=== PATIENT | female | born 1995 | race Caucasian/White ===

== ENCOUNTER 2017-05-26 07:30 | Emergency (ER) | payer OTHER ==
[2017-05-26 07:31] VITALS: BMI 27.1
[2017-05-26 07:56] VITALS: TEMP 98; O2SAT 97
[2017-05-26 08:08] VITALS: RESP 18
--- NOTE | 2017-05-26 08:12 | ED PDOC ---
Arrival/HPI - General Chief Complaint: Shortness Of Breath Time Seen by Provider: 05/26/17 08:06 Historian: Patient - History of Present Illness Narrative History of Present Illness (Text): 05/26/17 08:56 21 year old female complaining of shortness of breath that began earlier today. Symptom last only for an hour and occurs in the morning. Symptoms has occurred multiple times over the last month only with the patient noting that she has been working morning shifts recently at [employer]. Patient has never seen a doctor before for this complaint. Reports headache at times. Denies chest pain, fever, chills, or cough. No recent injury, surgery, travel, hormone use, previous DVT/PE. Time/Duration: 1-3 hours Symptom Onset: Sudden Context: Work Past Medical History - Provider Review Nursing Documentation Reviewed: Yes - Travel History Have you recently traveled outside [place] w/in the past 3 mons?: Yes If Yes, travel location?: Came from [place] 2 years ago - Infectious Disease Hx of Infectious Diseases: None - Reproductive Menopause: No - Hematological/Oncological Hx Anemia: Yes - Psychiatric Hx Substance Use: No - Anesthesia Hx Anesthesia: No Family/Social History - Physician Review Nursing Documentation Reviewed: Yes Family/Social History: Unknown Family HX Smoking Status: Never Smoked Hx Alcohol Use: No Hx Substance Use: No Allergies/Home Meds Allergies/Adverse Reactions: Allergies No Known Allergies Allergy (Verified 07/05/16 22:36) Home Medications: Home Meds Medication Instructions Recorded Confirmed No Known Home Med 05/26/17 05/26/17 Review of Systems - Physician Review All systems were reviewed & negative as marked: Yes - Review of Systems Constitutional: absent: Fevers Cardiovascular: absent: Chest Pain Physical Exam - Physical Exam Narrative Physical Exam (Text): Constitutional: No acute distress. Head: Normocephalic. Atraumatic. Eyes: PERRL. ENT: Moist mucous membranes. Neck: Supple. Cardiovascular: Regular rate. Radial pulse 2+ bilaterally. Chest: No tenderness. Respiratory: Clear to auscultation bilaterally. GI: Soft. Nontender. Nondistended. Back: No CVA tenderness. Musculoskeletal: No tenderness or swelling of extremities. Skin: No rash. No bruising. Neurologic: Alert, no focal deficit. Vital Signs Temp Pulse Resp BP Pulse Ox 05/26/17 10:17 82 18 99/64 L 97 05/26/17 08:05 98 F 80 18 104/58 L 97 05/26/17 07:52 98 F 80 16 104/58 L 97 Medical Decision Making ED Course and Treatment: 05/26/17 08:12 * Plans: * EKG * Blood labs * Chest X-ray * Urinalysis PERC negative. Patient states that she currently has no symptoms and feels well. Labs unremarkable. Gave copy of labs, instructed to follow up with primary care. Instructed to return to ED for worsening dyspnea, pain, fever. - Lab Interpretations Lab Results: 05/26/17 08:15 05/26/17 08:15 Lab Results 05/26/17 08:15: Urine HCG, Qual Negative 05/26/17 08:15: Sodium 141, Potassium 3.8, Chloride 107, Carbon Dioxide 26, Anion Gap 12, BUN 10, Creatinine 0.7, Est GFR ( Amer) > 60, Est GFR (Non- Af Amer) > 60, Random Glucose 86, Calcium 9.3, Total Bilirubin 0.7, AST 24, ALT 25, Alkaline Phosphatase 51, Total Protein 7.6, Albumin 4.2, Globulin 3.3, Albumin/Globulin Ratio 1.3 05/26/17 08:15: WBC 2.8 L*, RBC 4.56, Hgb 13.9, Hct 40.5, MCV 88.8, MCH 30.5, MCHC 34.3, RDW 11.9, Plt Count 170, MPV 9.0, Gran % 30.2 L, Lymph % (Auto) 61.5 H, [place] % (Auto) 6.5 H, Eos % (Auto) 1.4 L, Baso % (Auto) 0.4, Gran # 0.84 L, Lymph # 1.7, [place] # 0.2, Eos # 0.0, Baso # 0.01 - RAD Interpretation Narrative RAD Interpretations (Text): 05/26/17 10:11 HISTORY: COMPARISON: No prior. TECHNIQUE: Chest PA and lateral FINDINGS: LINES AND TUBES: None. LUNG AND PLEURA: The lungs are well inflated and clear. HEART AND MEDIASTINUM: The heart is not enlarged. The hilar and mediastinal contours are within normal limits. SKELETAL STRUCTURES: The bony structures are within normal limits for the patient's age. VISUALIZED UPPER ABDOMEN: Normal. OTHER FINDINGS: None. IMPRESSION: No active pulmonary disease. Radiology Orders: 05/26/17 08:06 CHEST TWO VIEWS (PA/LAT) [RAD] Stat [employer] Recovery Operator: ED Physician, Radiologist - EKG Interpretation EKG Interpretation (Text): 05/26/17 08:34 NSR 63, no ST/T wave changes, Normal axis, normal intervals. Interpreted by ED Physician: Yes Type: 12 lead EKG - Scribe Statement The provider has reviewed the documentation as recorded by the Scribe Nathan fernández All medical record entries made by the Scribe were at my direction and personally dictated by me. I have reviewed the chart and agree that the record accurately reflects my personal performance of the history, physical exam, medical decision making, and the department course for this patient. I have also personally directed, reviewed, and agree with the discharge instructions and disposition. Disposition/Present on Arrival - Present on Arrival Any Indicators Present on Arrival: No History of DVT/PE: No History of Uncontrolled Diabetes: No Urinary Catheter: No History of Decub. Ulcer: No History Surgical Site Infection Following: None - Disposition Have Diagnosis and Disposition been Completed?: Yes Diagnosis: Dyspnea Disposition: HOME/ ROUTINE Disposition Time: 09:51 Patient Plan: Discharge Condition: STABLE Discharge Instructions (ExitCare): Dyspnea (ED) Referrals: PCP,NO [Primary Care Provider] - Follow up with primary [facility] [Outside] - Follow up with primary [facility] [Outside] - Follow up with primary [facility] [Outside] - Follow up with primary Forms: [employer] (Kazakh)
[2017-05-26 08:26] LABS: BASO # 0.01 K/mm3 (0.0-2.0); BASO % 0.4 % (0.0-3.0); EOS % 1.4 % (1.5-5.0); GRAN # 0.84 (1.4-6.5); GRAN % 30.2 % (50.0-68.0); HEMATOCRIT 40.5 % (36.0-48.0); LYMPH # 1.7 (1.2-3.4); LYMPH % 61.5 % (22.0-35.0); MEAN CELL VOLUME 88.8 fl (80.0-105.0); MEAN CORPUSCULAR HEMOGLOBIN 30.5 pg (25.0-35.0); MEAN CORPUSCULAR HGB CONC 34.3 g/dl (31.0-37.0); MONO # 0.2 (0.1-0.6); MONO % 6.5 % (1.0-6.0); RED CELL DISTRIBUTION WIDTH 11.9 % (11.5-14.5)
[2017-05-26 08:34] LABS: WHITE BLOOD COUNT 2.8 10^3/ul (4.5-11.0)
[2017-05-26 08:37] LABS: ALB/GLOB RATIO 1.3 (1.1-1.8); ALKALINE PHOSPHATASE 51 U/L (38-126); ALT/SGPT 25 U/L (7-56); AST/SGOT 24 U/L (14-36); BILIRUBIN,TOTAL 0.7 mg/dL (0.2-1.3); BLOOD UREA NITROGEN 10 mg/dL (7-21); CALCIUM 9.3 mg/dL (8.4-10.5); CARBON DIOXIDE 26 mmol/L (21-33); CHLORIDE 107 mmol/L (98-107); GFR AFRICAN-AMERICAN > 60; GLUCOSE,RANDOM 86 mg/dL (70-110); POTASSIUM 3.8 mmol/L (3.6-5.0); SODIUM 141 mmol/L (132-148); TOTAL PROTEIN 7.6 g/dL (5.8-8.3)
[2017-05-26 10:19] VITALS: BP 99/64; PULSE 82
--- NOTE | 2017-05-26 22:01 | CARD ---
APPROVED REPORT EKG Measurement Heart [id number] <Conclusion> Normal sinus rhythm with sinus arrhythmia Normal ECG
== END 2017-05-26 10:19 | disposition home or self-care (01) ==
LOC: EDBD → ED 07:30
DX: R06.00 Dyspnea, unspecified (principal); D64.9 Anemia, unspecified

== ENCOUNTER 2017-06-04 12:47 | Emergency (ER) | payer OTHER ==
[2017-06-04 13:05] VITALS: TEMP 98; O2SAT 98; BMI 24.6
--- NOTE | 2017-06-04 13:34 | ED PDOC ---
Arrival/HPI - General Chief Complaint: Dental Pain Time Seen by Provider: 06/04/17 13:25 Historian: Patient - History of Present Illness Narrative History of Present Illness (Text): 06/04/17 13:10 A 21 year old female, who denies any significant past medical history, presents to the emergency department after being sent by dentist. The patient is reporting right sided swelling in face and neck. The patient states she had a fever upon arrival. She denies any abdominal pain, chest pain, trauma to area, sour/bitter taste in mouth, or any other complaints at this time. She admits to taking 600 mg of ibuprofen at 12:00. Time/Duration: 4-6 hours Symptom Onset: Sudden Symptom Course: Unchanged Quality: Other (swelling) Activities at Onset: Rest, Light Context: Home Past Medical History - Provider Review Nursing Documentation Reviewed: Yes - Infectious Disease Hx of Infectious Diseases: None - Hematological/Oncological Hx Anemia: Yes - Psychiatric Hx Substance Use: No - Anesthesia Hx Anesthesia: No Family/Social History - Physician Review Nursing Documentation Reviewed: Yes Family/Social History: No Known Family HX Smoking Status: Never Smoked Hx Alcohol Use: No Hx Substance Use: No Allergies/Home Meds Allergies/Adverse Reactions: Allergies No Known Allergies Allergy (Verified 06/04/17 12:56) Review of Systems - Physician Review All systems were reviewed & negative as marked: Yes - Review of Systems Constitutional: Fevers ENT: Other (right sided mouth swelling) Cardiovascular: absent: Chest Pain Gastrointestinal: absent: Abdominal Pain Physical Exam Vital Signs Reviewed: Yes Vital Signs Temp Pulse Resp BP Pulse Ox 06/04/17 14:21 86 18 110/71 98 06/04/17 12:51 98.0 F 93 H 16 108/75 98 Temperature: Afebrile Blood Pressure: Normal Pulse: Tachycardic Respiratory Rate: Normal Appearance: Positive for: Well-Appearing, Non-Toxic, Comfortable Pain Distress: None Mental Status: Positive for: Alert and Oriented X 3 - Systems Exam Head: Present: Atraumatic, Normocephalic Pupils: Present: PERRL Extroacular Muscles: Present: EOMI Conjunctiva: Present: Normal Mouth: Present: Moist Mucous Membranes, Normal Lips, Normal Tounge, Other (no fluctlulance on gums ). No: Normal Teeth (tooth #32 appears to be impacted) Pharnyx: Present: Normal. No: ERYTHEMA, EXUDATE, TONSILS ENLARGED, Peritonsilar Swelling, Uvular Deviation, Muffled/Hoarse Voice, Strider, Soft Palate/Uvular Edema Neurological: Present: GCS=15, CN II-XII Intact, Speech Normal Skin: Present: Warm, Dry, Normal Color. No: Rashes Psychiatric: Present: Alert, Oriented x 3, Normal Insight, Normal Concentration Medical Decision Making ED Course and Treatment: 06/04/17 13:10 Impression: A 21 year old female with right sided facial and neck swelling. Differential Diagnosis included but are not limited to: Plan: -- Maxillofacial w/o contrast CT -- test -- Reassess and disposition Progress Notes: - RAD Interpretation Radiology Orders: 06/04/17 13:27 MAXILLOFACIAL W/O CONTRAST [CT] Stat - Scribe Statement The provider has reviewed the documentation as recorded by the Scribe Vania Denis Provider Scribe Attestation: All medical record entries made by the Scribe were at my direction and personally dictated by me. I have reviewed the chart and agree that the record accurately reflects my personal performance of the history, physical exam, medical decision making, and the department course for this patient. I have also personally directed, reviewed, and agree with the discharge instructions and disposition. Disposition/Present on Arrival - Present on Arrival Any Indicators Present on Arrival: No History of DVT/PE: No History of Uncontrolled Diabetes: No Urinary Catheter: No History of Decub. Ulcer: No History Surgical Site Infection Following: None - Disposition Have Diagnosis and Disposition been Completed?: Yes Diagnosis: Pain, dental Disposition: HOME/ ROUTINE Disposition Time: 14:20 Condition: GOOD Discharge Instructions (ExitCare): Toothache (ED) Additional Instructions: Thank you for letting us take care of you today. The emergency medical care you received today was directed at your acute symptoms. If you were prescribed any medication, please fill it and take as directed. It may take several days for your symptoms to resolve. Return to the Emergency Department if your symptoms worsen, do not improve, or if you have any other problems. Please contact your doctor or call one of the physicians/clinics you have been referred to that are listed on the Patient Visit Information form that is included in your discharge packet. Bring any paperwork you were given at discharge with you along with any medications you are taking to your follow up visit. Our treatment cannot replace ongoing medical care by a primary care provider (PCP) outside of the emergency department. Thank you for allowing the [facility] team to be part of your care today. Follow up with your dentist in 2 days for re-evaluation and further management. Prescriptions: RX: Clindamycin [Cleocin] 300 mg PO Q6 #20 cap Ibuprofen [Motrin] 600 mg PO Q6 PRN #20 tab PRN Reason: Pain, Moderate (4-7) Referrals: PCP,NO [Primary Care Provider] - Follow up with primary Forms: [employer] (Comoran)
--- NOTE | 2017-06-04 14:20 | CT ---
PROCEDURE: CT MAXILLOFACIAL BONES WITHOUT CONTRAST HISTORY: r/o abscess to right mandibular area COMPARISON: None TECHNIQUE: Contiguous axial CT images of the maxillofacial bones were obtained. Coronal and sagittal reformats were generated. Radiation dose: Total exam DLP = 802 mGy-cm. This CT exam was performed using one or more of the following dose reduction techniques: Automated exposure control, adjustment of the mA and/or kV according to patient size, and/or use of iterative reconstruction technique. FINDINGS: NASAL BONES: Unremarkable. ORBITS: Unremarkable. PARANASAL SINUSES/ MASTOIDS: Mucous retention cysts are seen in both maxillary sinuses. MAXILLA: No evidence of bony destruction to suggest dental abscess MANDIBLE/ TEMPOROMANDIBULAR JOINTS: No evidence of bony destruction to suggest dental abscess. Minimal subcutaneous inflammatory changes are seen in the right mandibular region. There is no evidence of a discrete abscess. SKULL BASE: Unremarkable. TEMPORAL BONES: Middle ears and mastoid grossly unremarkable. OTHER FINDINGS: None. IMPRESSION: No evidence of bony destruction to suggest dental abscess. Minimal subcutaneous inflammatory changes in the right mandibular region.
[2017-06-04 14:22] VITALS: BP 110/71; PULSE 86; RESP 18
== END 2017-06-04 14:47 | disposition home or self-care (01) ==
LOC: ED 12:47
DX: K08.89 Other specified disorders of teeth and supporting structures (principal)

== ENCOUNTER 2018-10-03 12:13 | Emergency (ER) | payer OTHER ==
[2018-10-03 12:14] VITALS: BMI 24.6
[2018-10-03 12:44] VITALS: TEMP 98.2
[2018-10-03] MEDS ORDERED: Sodium Chloride 0.9% 1,000 ML IV STA (13:25)
[2018-10-03 14:31] LABS: BASO # 0.03 K/mm3 (0.0-2.0); BASO % 0.8 % (0.0-3.0); EOS # 0.1 (0.0-0.7); EOS % 2.1 % (1.5-5.0); HEMOGLOBIN 14.8 g/dL (12.0-16.0); LYMPH # 1.4 (1.2-3.4); LYMPH % 37.3 % (22.0-35.0); MEAN CORPUSCULAR HEMOGLOBIN 30.1 pg (25.0-35.0); MEAN CORPUSCULAR HGB CONC 34.3 g/dl (31.0-37.0); MEAN PLATELET VOLUME 8.7 fl (7.0-11.0); MONO # 0.5 (0.1-0.6); MONO % 12.1 % (1.0-6.0); RBC 4.91 10^6/uL (3.5-6.1); RED CELL DISTRIBUTION WIDTH 12.1 % (11.5-14.5); URINE BILIRUBIN NEGATIVE (NEGATIVE); URINE BLOOD NEGATIVE (NEGATIVE); URINE GLUCOSE (UA) NEGATIVE (NEGATIVE); URINE LEUKOCYTE ESTERASE SMALL Leu/uL (NEGATIVE); URINE PROTEIN NEGATIVE mg/dL (<30 mg/dL); URINE UROBILINOGEN 0.2 E.U./dL (<1 E.U./dL); WHITE BLOOD COUNT 3.7 10^3/uL (4.5-11.0)
[2018-10-03 14:34] LABS: URINE APPEARANCE CLEAR (CLEAR); URINE COLOR YELLOW (YELLOW)
[2018-10-03 14:40] LABS: BLOOD UREA NITROGEN 9 mg/dL (7-21); GFR NON-AFRICAN AMERICAN > 60
[2018-10-03 14:41] LABS: ALB/GLOB RATIO 1.1 (1.1-1.8); ALBUMIN 4.2 g/dL (3.0-4.8); ALT/SGPT 10 U/L (7-56); AST/SGOT 21 U/L (14-36); CALCIUM 9.4 mg/dL (8.4-10.5); URINE RBC 0 - 2 /hpf (0-2)
--- NOTE | 2018-10-03 14:41 | ED PDOC ---
Arrival/HPI - General Chief Complaint: Shortness Of Breath Time Seen by Provider: 10/03/18 12:19 Historian: Patient - History of Present Illness Narrative History of Present Illness (Text): 10/03/18 23:15 22 y/o female with no significant PMH presents to the ED c/o chest tightness and sinus congestion x 1 day. Associated chest pain when taking deep breaths, sore throat, and chest congestion. Has not taken any medication for symptoms. No hormone use, recent surgeries, travel, or long immobilizations. No history of malignancy. Denies fever, chills, vision changes, dizziness, urinary symptoms, nausea, vomiting, abdominal pain, rash, calf swelling or pain, back, neck pain/stiffness, headache, or any other symptoms. Past Medical History - Provider Review Nursing Documentation Reviewed: Yes - Infectious Disease Hx of Infectious Diseases: None - Reproductive Menopause: No - Hematological/Oncological Hx Anemia: Yes - Psychiatric Hx Substance Use: No - Anesthesia Hx Anesthesia: No Family/Social History - Physician Review Nursing Documentation Reviewed: Yes Family/Social History: No Known Family HX Smoking Status: Never Smoked Hx Alcohol Use: No Hx Substance Use: No Allergies/Home Meds Allergies/Adverse Reactions: Allergies No Known Allergies Allergy (Verified 06/04/17 12:56) Home Medications: Home Meds Medication Instructions Recorded Confirmed No Known Home Med 10/03/18 10/03/18 Review of Systems - Review of Systems Constitutional: Normal Eyes: Normal ENT: Normal Respiratory: Normal Cardiovascular: Normal Gastrointestinal: Normal Genitourinary Female: Normal Musculoskeletal: Normal Skin: Normal Neurological: Normal Endocrine: Normal Hemo/Lymphatic: Normal Psychiatric: Normal Physical Exam Vital Signs Reviewed: Yes Vital Signs Temp Pulse Resp BP Pulse Ox 10/03/18 12:37 98.2 F 84 20 97/67 L 97 Temperature: Afebrile Blood Pressure: Hypotensive Pulse: Regular Respiratory Rate: Normal Appearance: Positive for: Well-Appearing, Non-Toxic, Comfortable Pain Distress: None Mental Status: Positive for: Alert and Oriented X 3 - Systems Exam Head: Present: Atraumatic, Normocephalic Pupils: Present: PERRL Extroacular Muscles: Present: EOMI Conjunctiva: Present: Normal Mouth: Present: Moist Mucous Membranes Neck: Present: Normal Range of Motion Respiratory/Chest: Present: Clear to Auscultation, Good Air Exchange. No: Respiratory Distress, Accessory Muscle Use Cardiovascular: Present: Regular Rate and Rhythm, Normal S1, S2. No: Murmurs Abdomen: No: Tenderness, Distention, Peritoneal Signs Back: Present: Normal Inspection Upper Extremity: Present: Normal Inspection. No: Cyanosis, Edema Lower Extremity: Present: Normal Inspection. No: Edema Neurological: Present: GCS=15, CN II-XII Intact, Speech Normal Skin: Present: Warm, Dry, Normal Color. No: Rashes Psychiatric: Present: Alert, Oriented x 3, Normal Insight, Normal Concentration Medical Decision Making ED Course and Treatment: Initial Plan: * CBC, CMP * Mg, Phos * Coags * UA, culture * Troponin, Dimer * CXR * Rapid flu * Rapid strep * IVF EKG is NSR at 90bpm without STEMI or other signs of ischemi; troponin negative Dimer negative Bloodwork reviewed, unremarkable Flu and strep negative CXR shows no active disease Patient refusing any prescription medications, states she would just like to go home and rest. Diagnostic testing results and plan of care discussed with patient. Strict instructions given regarding importance of followup, and signs/symptoms to return to ER including chest pain, difficulty breathing, lethargy, or any other new/worsening symptoms. Pt verbalized understanding of discussion. Patient is A&Ox3, ambulating with steady gait, with vital signs stable for discharge. - Lab Interpretations Lab Results: Total Bilirubin 0.4 mg/dL (0.2-1.3) 10/03/18 14:15 AST 21 U/L (14-36) 10/03/18 14:15 ALT 10 U/L (7-56) 10/03/18 14:15 Alkaline Phosphatase 58 U/L (38-126) 10/03/18 14:15 Total Protein 8.1 g/dL (5.8-8.3) 10/03/18 14:15 Albumin 4.2 g/dL (3.0-4.8) 10/03/18 14:15 Globulin 3.9 gm/dL 10/03/18 14:15 Albumin/Globulin Ratio 1.1 (1.1-1.8) 10/03/18 14:15 Urine Color Yellow (YELLOW) 10/03/18 14:15 Urine Appearance Clear (CLEAR) 10/03/18 14:15 Urine pH 6.0 (4.7-8.0) 10/03/18 14:15 Ur Specific [place] 1.010 (1.005-1.035) 10/03/18 14:15 Urine Protein Negative mg/dL (<30 mg/dL) 10/03/18 14:15 Urine Glucose (UA) Negative mg/dL (NEGATIVE) 10/03/18 14:15 Urine Ketones Negative mg/dL (NEGATIVE) 10/03/18 14:15 Urine Blood Negative (NEGATIVE) 10/03/18 14:15 Urine Nitrate Negative (NEGATIVE) 10/03/18 14:15 Urine Bilirubin Negative (NEGATIVE) 10/03/18 14:15 Urine Urobilinogen 0.2 E.U./dL (<1 E.U./dL) 10/03/18 14:15 Ur Leukocyte Esterase Small Esperanza/uL (NEGATIVE) H 10/03/18 14:15 10/03/18 14:15 10/03/18 14:15 Lab Results 10/03/18 14:15: Urine Color Yellow, Urine Appearance Clear, Urine pH 6.0, Ur Specific [place] 1.010, Urine Protein Negative, Urine Glucose (UA) Negative, Urine Ketones Negative, Urine Blood Negative, Urine Nitrate Negative, Urine Bilirubin Negative, Urine Urobilinogen 0.2, Ur Leukocyte Esterase Small H, Urine RBC 0 - 2, Urine WBC 15 - 20 H, Ur Epithelial Cells Many H, Amorphous Sediment Few, Urine Bacteria Many, Urine Other Uyeast 10/03/18 14:15: D-Dimer, Quantitative < 200 10/03/18 14:15: Sodium 140, Potassium 3.7, Chloride 104, Carbon Dioxide 25, Anion Gap 15, BUN 9, Creatinine 0.6 L, Est GFR ( Amer) > 60, Est GFR (Non-Af Amer) > 60, Random Glucose 88, Calcium 9.4, Total Bilirubin 0.4, AST 21, ALT 10, Alkaline Phosphatase 58, Troponin I < 0.01, Total Protein 8.1, Albumin 4.2, Globulin 3.9, Albumin/Globulin Ratio 1.1 10/03/18 14:15: WBC 3.7 L, RBC 4.91, Hgb 14.8, Hct 43.2, MCV 88.0, MCH 30.1, MC HC 34.3, RDW 12.1, Plt Count 158, MPV 8.7, Neut % (Auto) 47.7 L, Lymph % (Auto) 37.3 H, [place] % (Auto) 12.1 H, Eos % (Auto) 2.1, Baso % (Auto) 0.8, Lymph # (Auto) 1.4, [place] # (Auto) 0.5, Eos # (Auto) 0.1, Baso # (Auto) 0.03, Absolute Neuts (auto) 1.78 10/03/18 14:15: Influenza Typ A,B (EIA) Negative for flu a/b, Grp A Beta Strep Ag Negative I have reviewed the lab results: Yes - RAD Interpretation Radiology Orders: 10/03/18 13:24 CXR (PA/LAT) [CHEST TWO VIEWS (PA/LAT)] [RAD] Stat Equipment [id number]: Radiologist - EKG Interpretation EKG Interpretation (Text): Rate 90; NSR; Normal intervals; No STEMI or other signs of acute ischemia - Medication Orders Current Medication Orders: Discontinued Medications Sodium Chloride (Sodium Chloride 0.9%) 1,000 mls @ 999 mls/hr IV .Q1H1M STA Stop: 10/03/18 14:25 Last Admin: 10/03/18 14:13 Dose: 999 mls/hr eMAR Start Stop Document 10/03/18 14:13 EQ (Rec: 10/03/18 14:13 EQ [facility] [id number] Intravenous Solution Start Date 10/03/18 Start Time 14:13 Disposition/Present on Arrival - Present on Arrival History of DVT/PE: No History of Uncontrolled Diabetes: No Urinary Catheter: No History of Decub. Ulcer: No History Surgical Site Infection Following: None - Disposition Diagnosis: Upper respiratory infection Disposition: HOME/ ROUTINE Condition: IMPROVED Discharge Instructions (ExitCare): Viral Upper Respiratory Infection, Adult (DC) Additional Instructions: Increase fluids Rest, no strenuous activity Followup with primary within 2 days Return to ER with any new/worsening symptoms Referrals: [facility] [place] - Follow up with primary Dedra Chapa MD [Medical Doctor] - Follow up with primary Forms: [employer] (Canadian), WORK NOTE
[2018-10-03 14:42] LABS: URINE AMORPHOUS SEDIMENT FEW /hpf; URINE BACTERIA MANY /hpf; URINE EPITHELIAL CELLS MANY /hpf (0-5); URINE WBC 15 - 20 /hpf (0-6)
[2018-10-03 14:51] LABS: INFLUENZA A B NEGATIVE FOR FLU A/B (NEGATIVE); TROPONIN I < 0.01 ng/mL
[2018-10-03 15:08] VITALS: RESP 18; O2SAT 99
--- NOTE | 2018-10-03 16:57 | RAD ---
Date of service: 10/03/2018 HISTORY: SOB COMPARISON: 05/26/2017 TECHNIQUE: Chest PA and lateral views FINDINGS: LUNGS: No active pulmonary disease. PLEURA: No significant pleural effusion identified. No pneumothorax apparent. CARDIOVASCULAR: No aortic atherosclerotic calcification present. Normal cardiac size. No pulmonary vascular congestion. OSSEOUS STRUCTURES: No significant abnormalities. VISUALIZED UPPER ABDOMEN: Normal. OTHER FINDINGS: None. IMPRESSION: No active disease.
[2018-10-03 17:39] VITALS: BP 100/71; PULSE 88
--- NOTE | 2018-10-03 19:20 | CARD ---
APPROVED REPORT Date of service: 10/03/2018 EKG Measurement Heart [id number] <Conclusion> Normal sinus rhythm Normal ECG
== END 2018-10-03 17:45 | disposition home or self-care (01) ==
LOC: ED 12:13
DX: J06.9 Acute upper respiratory infection, unspecified (principal)
CPT/HCPCS: 71046; 80053; 81001; 81025; 84484; 85025; 85378; 87070; 87086; 87430; 87804; 93005; 99284; J7030